=== PATIENT | female | born 1985 | race Caucasian/White ===

== ENCOUNTER 2017-01-07 17:01 | Emergency (ER) | payer OTHER, SELFPAY ==
[~2017-01-07 17:01] MED LIST: ADVAIR; ALBUTEROL I0.5 ML/EA; ALBUTEROL SULF8.5 G1 IH; ANTIBIOTIC; BACTRIM DS TABL1 TAB PO; BACTRIM DS1 TAB PO; CALCIUM600 MG PO; COLACE100 M1 PO; IBUPROFEN800 M1 PO; KEFLEX500 MG PO; MOTRIN800 MG PO; NORCO 5-325 TA1 EACH PO; NORCO 5/325 TAB1 TAB PO; PRENATAL1 TAB; PRENATAL1 TAB PO; PROMETHAZINE12.5 M2 PO; TYLENOL W/CODEI1 TAB PO; UNISOM50 MG PO; VALIUM5 M1 PO; VICODIN 5/500 T1 TAB PO; VISTARIL25 MG PO; ZITHROMAX250MG Z-PAK PO; ZOFRAN ODT4 MG PO; ZOFRAN ODT4 MG/UDTAB PO; ZOFRAN4 M1; ZOFRAN4 M1 PO; ZOFRAN4 MG PO
[2017-01-07] MEDS ORDERED: CYMBALTA30 M1 PO (17:15)
[2017-01-07 18:24] LABS: BASO % 0.1 % (0-2); EOS % 3.3 % (0-7); EOSINOPHIL ABSOLUTE COUNT 0.2 tho/cmm (0.0-0.7); HCT-HEMATOCRIT 34.3 % (34.0-49.0); HGB-HEMOGLOBIN 11.4 gm/dl (12.0-15.5); IMMATURE GRANULOCYTES ABSOLUTE 0.01 tho/cmm (0-0.03); IMMATURE GRANULOCYTES PERCENT 0.1 % (0-0.3); LYMPH % 21.6 % (20-45); LYMPH ABSOLUTE COUNT 1.5 tho/cmm (0.8-4.5); MCH (MEAN CORPUSCULAR HGB) 25.5 pg (28.0-32.0); MCHC MEAN CORPUSCULAR HGB CONC 33.2 % (32.0-36.0); MCV (MEAN CELL VOLUME) 76.7 fl (82.0-96.0); MEAN PLATELET VOLUME 9.1 cmc (9.4-12.4); MONO % 5.2 % (0-12); MONOCYTE ABSOLUTE COUNT 0.4 tho/cmm (0.0-1.2); NEUTROPHIL ABSOLUTE COUNT 4.8 tho/cmm (1.6-8.0); NEUTROPHIL-AUTOMATED 4.8 tho/cmm (1.6-8.0); NEUTROPHILS % 69.7 % (40-80); PLATELET COUNT 256 tho/cmm (150-450); RED BLOOD COUNT 4.47 mil/cmm (4.00-5.20); RED CELL DISTRIBUTION WIDTH 14.8 % (12.4-16.4); WHITE BLOOD COUNT 6.9 tho/cmm (4.0-10.0)
[2017-01-07 18:35] LABS: AMYLASE 20 U/L (20-90); ANION GAP 10 mmol/L (0-20); BLOOD UREA NITROGEN 9 mg/dl (6-24); CARBON DIOXIDE-VENOUS 24 mmol/L (22-32); CHLORIDE 114 mmol/l (96-110); CREATININE 0.71 mg/dl (0.50-1.10); GLUCOSE 87 mg/dL (70-110); LIPASE 126 U/L (73-393); SODIUM 145 mmol/L (135-145); eGFR VALUE FOR BLACK >90 mL/Min
[2017-01-07 18:37] LABS: POTASSIUM 2.8 mmol/L (3.7-5.1)
[2017-01-07] MEDS ORDERED: ZOFRAN4 M2 PO (19:56)
[2017-01-07] MEDS ORDERED: POTASSIUM CHLO20 ME3 PO (19:56)
[2017-06-24] MEDS ORDERED: REMICADE100 MG (02:15)
[2017-06-24] MEDS ORDERED: PREDNISONE10 M1 PO (02:15)
[2017-06-24] MEDS ORDERED: CENTRUM WOMEN1 EACH (02:19)
[2017-06-24] MEDS ORDERED: B COMPLEX # 11 EACH PO (02:19)
[2017-06-24] MEDS ORDERED: VITAMIN D31000 UNI3 PO (02:19)
[2017-06-24] MEDS ORDERED: HYDROXYZINE HCL25 M1 PO (04:57)
== END 2017-01-07 20:16 ==
LOC: EDMED 17:01
PROVIDERS: Physician Assistant
DX: E87.6 Hypokalemia (principal); R19.7 Diarrhea, unspecified; F32.9 Major depressive disorder, single episode, unspecified; F41.9 Anxiety disorder, unspecified; J45.909 Unspecified asthma, uncomplicated; Z90.710 Acquired absence of both cervix and uterus; Z90.89 Acquired absence of other organs; Z79.899 Other long term (current) drug therapy
CPT/HCPCS: J2405; J7030